=== PATIENT | female | born 1970 ===

== ENCOUNTER 2023-11-12 05:30 | Day surgery (SDC) | payer OTHER ==
[2023-11-12] MEDS ORDERED: DIPHENHYDRAMINE HCL 50 MG/ML VIAL 1ML IV ONE (13:15)
[2023-11-12] MEDS ORDERED: fentaNYL CITRATE 50 MCG/ML AMPUL IV ONE (13:15)
[2023-11-12] MEDS ORDERED: MIDAZOLAM HCL 2 MG/2 ML VIAL IV ONE (13:30)
== END 2023-11-12 14:55 | disposition home or self-care (01) ==
LOC: AMB-ENDOS 05:30
PROVIDERS: ATTEND Surgery
DX: C18.7 Malignant neoplasm of sigmoid colon (principal); D12.2 Benign neoplasm of ascending colon; D12.3 Benign neoplasm of transverse colon; K63.5 Polyp of colon; K64.8 Other hemorrhoids

== ENCOUNTER 2024-01-04 11:30 | Inpatient (IN) | payer OTHER ==
[~2024-01-04] VITALS: Ht 160 cm; Wt 68.0 kg
[2024-01-04] MEDS ORDERED: HYDROCHLOROQUINE PO (12:06)
[2024-01-04] MEDS ORDERED: METHOTREXA25 MG/1 M5 SUBCUTANEO (12:08)
[2024-01-08] MEDS ORDERED: METRONIDAZOLE/SODIUM CHLORIDE 500 MG/100 ML PIGGYBACK IV ONE (13:15)
[2024-01-08] MEDS ORDERED: CEFTRIAXONE SODIUM 2,000 MG VIAL IV ONE (13:15)
[2024-01-08] MEDS ORDERED: RINGERS SOLUTION,LACTATED 1,000 ML IV SCH (14:15)
[2024-01-08] MEDS ORDERED: ONDANSETRON HCL 2 MG/ML VIAL IV PRN (14:15)
[2024-01-08] MEDS ORDERED: MORPHINE SULFATE 4 MG/ML CARTRIDGE IV PRN (14:15)
[2024-01-08] MEDS ORDERED: OxyCODONE HCL 5 MG TABLET (ROXICODONE) PO PRN (14:15)
[2024-01-08] MEDS ORDERED: FOLIC ACID1 MG (14:41)
[2024-01-08] MEDS ORDERED: FERROUS SULFAT325 MG (14:41)
[2024-01-08] MEDS ORDERED: B-121000 MC2 (14:41)
[2024-01-08] MEDS ORDERED: DOCUSATE CALCI240 MG (14:41)
[2024-01-08] MEDS ORDERED: ZOLPIDEM TARTRA10 MG (14:41)
[2024-01-08] MEDS ORDERED: HYDROXYCHLOROQ200 MG (14:49)
[2024-01-08] MEDS ORDERED: MORPHINE SULFATE 4 MG/ML VIAL IV ONE ×2 (15:00→15:30)
[2024-01-08] MEDS ORDERED: GABAPENTIN 300 MG CAPSULE PO SCH (17:00)
[2024-01-08] MEDS ORDERED: METRONIDAZOLE/SODIUM CHLORIDE 500 MG/100 ML PIGGYBACK IV SCH (17:00)
[2024-01-08] MEDS ORDERED: HYOSCYAMINE SULFATE 0.125 MG TAB.SUBL SL SCH (17:00)
[2024-01-08] MEDS ORDERED: PANTOPRAZOLE SODIUM 40 MG/VIAL VIAL IV ONE (18:00)
[2024-01-08] MEDS ORDERED: ONDANSETRON HCL 2 MG/ML VIAL IV ONE (18:00)
[2024-01-08] MEDS ORDERED: ACETAMINOPHEN 500 MG GEL..CAP PO SCH (18:00)
[2024-01-08 20:15] VITALS: BP 156/83; O2SAT 100
[2024-01-08] MEDS ORDERED: FAMOTIDINE/PF 20 MG/2 ML VIAL IV PUSH SCH (21:00)
[2024-01-08] MEDS ORDERED: TAMSULOSIN HCL 0.4 MG CAP PO SCH (21:00)
[2024-01-09] VITALS: BP 145/87; O2SAT 100
[2024-01-09 08:24] VITALS: BP 125/61; O2SAT 98
[2024-01-09 08:34] LABS: HEMATOCRIT 35.8 % (36.0-45.00); HEMOGLOBIN 12.2 g/dL (12.0-15.00); MEAN CELL VOLUME 82.3 fL (80.00-100.00); PLATELET COUNT 367 K/uL (150-450); RED BLOOD COUNT 4.34 M/uL (4.00-6.00); RED CELL DISTRIBUTION WIDTH 16.2 % (11.5-14.5)
[2024-01-09 08:51] LABS: ALBUMIN 2.6 gm/dL (3.4-5.0); CALCIUM 8.8 mg/dL (8.5-10.1); CREATININE SERUM 0.54 mg/dL (0.55-1.02); GFR 117.21; MAGNESIUM 1.6 mg/dL (1.8-2.4); PHOSPHOROUS 4.4 mg/dL (2.5-4.9); POTASSIUM 4.35 mEq/L (3.5-5.1)
[2024-01-09] MEDS ORDERED: LACTOBACILLUS ACIDOPHILUS 1 CAP CAP PO SCH (09:00)
[2024-01-09] MEDS ORDERED: MAGNESIUM SULFATE IN WATER 4 GM/100 ML PIGGYBACK IV NR (12:00)
[2024-01-09 16:00] VITALS: BP 100/58; O2SAT 95
[2024-01-09] MEDS ORDERED: ENOXAPARIN SODIUM 40 MG/0.4 ML SYRINGE SUBCUTANEO SCH (17:00)
[2024-01-10 00:52] VITALS: BP 104/62; O2SAT 95
[2024-01-10] MEDS ORDERED: ENOXAPARIN SODIUM 40 MG/0.4 ML SYRINGE SUBCUTANEO SCH (09:00)
[2024-01-10 10:40] VITALS: BP 91/67; O2SAT 98
[2024-01-10] MEDS ORDERED: KETOROLAC TROMETHAMINE 30 MG VIAL IV NR (11:00)
[2024-01-10 17:53] VITALS: BP 99/64; O2SAT 98
[2024-01-10] MEDS ORDERED: KETOROLAC TROMETHAMINE 30 MG VIAL IV SCH (21:00)
[2024-01-11 00:52] VITALS: BP 100/55; O2SAT 96
[2024-01-11 08:00] VITALS: BP 120/72; O2SAT 100
[2024-01-11] MEDS ORDERED: CEFTRIAXONE SODIUM 2,000 MG VIAL IV SCH (09:00)
[2024-01-11] MEDS ORDERED: PIPERACILLIN/TAZOBACTAM SODIUM 3.375 GM in 0.9 % SODIUM CHLORIDE 100 ML IV SCH (12:00)
[2024-01-11 16:00] VITALS: BP 133/76; O2SAT 97
[2024-01-11 18:18] LABS: HEMATOCRIT 32.6 % (36.0-45.00); HEMOGLOBIN 10.8 g/dL (12.0-15.00); MEAN CELL VOLUME 83.2 fL (80.00-100.00); MEAN CORPUSCULAR HEMOGLOBIN 27.6 pg (27.00-32.0); MEAN CORPUSCULAR HGB CONC 33.2 g/dl (32.0-36.0); PLATELET COUNT 355 K/uL (150-450); RED BLOOD COUNT 3.92 M/uL (4.00-6.00); RED CELL DISTRIBUTION WIDTH 16.3 % (11.5-14.5)
[2024-01-11 23:00] VITALS: BP 120/68; O2SAT 96
[2024-01-12 08:28] VITALS: BP 132/82; O2SAT 95
== END 2024-01-12 14:06 | disposition home or self-care (01) | DRG 331 ==
LOC: O/R 01-08 07:29 → SURH 01-08 11:30 → SURG 01-08 16:21 → SURH 01-08 17:30 → SURG 01-12 14:06
PROVIDERS: Surgery; ADMIT Surgery; ATTEND Surgery
PROC: 0DBP4ZZ Excision of Rectum, Percutaneous Endoscopic Approach (ICD-10-PCS; 2024-01-08)
PROC: 0DNW4ZZ Release Peritoneum, Percutaneous Endoscopic Approach (ICD-10-PCS; 2024-01-08)
PROC: 0DNN4ZZ Release Sigmoid Colon, Percutaneous Endoscopic Approach (ICD-10-PCS; 2024-01-08)
PROC: 07BB4ZZ Excision of Mesenteric Lymphatic, Percutaneous Endoscopic Approach (ICD-10-PCS; 2024-01-08)
PROC: 0DJD8ZZ Inspection of Lower Intestinal Tract, Via Natural or Artificial Opening Endoscopic (ICD-10-PCS; 2024-01-08)
PROC: 0DTN4ZZ Resection of Sigmoid Colon, Percutaneous Endoscopic Approach (ICD-10-PCS; principal; 2024-01-08 17:30)
DX: C18.7 Malignant neoplasm of sigmoid colon (principal); R93.5 Abnormal findings on diagnostic imaging of other abdominal regions, including retroperitoneum; R59.0 Localized enlarged lymph nodes